=== PATIENT | female | born 1985 | race Caucasian/White ===

== ENCOUNTER 2019-11-21 14:03 | Outpatient (CLI) | payer OTHER ==
--- NOTE | 2019-11-21 17:41 | MRI ---
MRI OF THE RIGHT KNEE WITHOUT CONTRAST: 11/21/19 INDICATION: Right knee pain. COMPARISON: Right knee radiograph dated 11/10/19. FINDINGS: No joint capsular distention is evident. There is a very tiny popliteal cyst. Articular cartilage of the patellofemoral compartment and femorotibial compartment appears relatively well maintained. The m edial and lateral menisci are intact. The ACL, PCL, MCL and LCLC are intact. The extensor mechanism i s intact. Bone marrow signal intensity appears within normal limits. IMPRESSION: No acute abnormality seen involving the right knee. POS: CET
== END 2019-11-21 14:04 | disposition home or self-care (01) ==
LOC: SCSMRI 14:03
PROVIDERS: ATTEND Orthopaedic Surgery
DX: M25.561 Pain in right knee (principal)